=== PATIENT | female | born 1990 | race Caucasian/White ===

== ENCOUNTER 2019-12-28 20:31 | Inpatient (IN) ==
[2019-12-28 20:53] LABS: Mucus,Urine Many /LPF (Occasional); RBC,Urine 4 /HPF (0-4); WBC,Urine 2 /HPF (0-6)
[2019-12-28 20:56] LABS: Urine Appearance Clear (Clear); Urine Color Yellow (Yellow)
[2019-12-28 20:57] LABS: Glucose,Urine (UA) Negative (Negative); Ketones,Urine 25 mg/dL (Negative); Nitrite,Urine Negative (Negative); Protein,Urine >=500 MG/DL
[2019-12-28 20:58] LABS: Bilirubin,Urine Small mg/dL (Negative); Blood, Urine Trace mg/dL (Negative)
[2019-12-28 22:09] LABS: Basophils % 0.1 % (0.0-0.8); Eosinophils % 0.3 % (0.00-10.9); Hemoglobin 10.6 GM/DL (12.0-16.0); Immature Granulocytes % 1.5 %; Immature Granulocytes Absolute 0.16 #; Lymphocytes % 18.8 % (21.3-54.2); Mean Corpuscular HGB Conc 33.1 GM/DL (32-36); Monocytes % 7.5 % (1.7-12.7); NRBC # 0.02 10*3/uL; Neutrophils % 71.8 % (38.7-73.9); Platelet Count 163 T/CUMM (130-400); Red Blood Count 3.68 MC/CUMM (3.8-5.5); Red Cell Distribution Width 13.7 % (9.3-17.3); White Blood Count 10.6 T/CUMM (4-12)
[2019-12-28 22:20] LABS: INR 0.9; PT Patient Result 9.8 SECS (9.8-11.9); Partial Thromboplastin Time 23.1 SECS (23.9-33.8)
[2019-12-28 22:33] LABS: Alanine Aminotransferase 24 U/L (13-56); Albumin 2.3 G/DL (3.4-5.0); Alkaline Phosphatase 121 U/L (45-117); Aspartate Amino Transferase 26 U/L (0-37); Bilirubin,Total < 0.39 MG/DL (0.2-1.0); Blood Urea Nitrogen 12 MG/DL (7-18); Calcium 8.1 MG/DL (8.5-10.1); Estimated Glom Filtration Rate 98 ML/MIN; Glucose 88 MG/DL (74-106); Osmolality,Calculated 275.5 MOS/KG (273-304); Total Protein 6.1 G/DL (6.4-8.3)
[2019-12-28] MEDS ORDERED: ACETAMINOPHEN 500 MG TABLET PO PRN (23:55)
[2019-12-29] MEDS ORDERED: LABETALOL 200 MG TABLET PO SCH (02:00)
[2019-12-29] MEDS ORDERED: MAGNESIUM SULF RIDER 100 ML IV ONE (05:36)
[2019-12-29] MEDS ORDERED: ONDANSETRON 4 MG/2 ML VIAL IV PRN ×3 (05:59→11:19)
[2019-12-29] MEDS ORDERED: MAGNESIUM SULF DRIP 40 GM/1,000 ML ML IV SCH (06:00)
[2019-12-29] MEDS ORDERED: BUTORPHANOL 2 MG/ML VIAL IV PRN (06:09)
[2019-12-29] MEDS ORDERED: MEPERIDINE 50 MG/1 ML VIAL IV PRN (06:09)
[2019-12-29] MEDS ORDERED: LACTATED RINGERS 1,000 ML IV SCH (06:30)
[2019-12-29] MEDS ORDERED: CITRIC ACID/SODIUM CITRATE 30 ML UDCUP PO ONE (06:56)
[2019-12-29] MEDS ORDERED: CLINDAMYCIN INJ 900 MG in PREMIX 1 EACH IV ONE (06:59)
[2019-12-29] MEDS ORDERED: FAMOTIDINE 20 MG/2 ML VIAL IV ONE (07:35)
[2019-12-29] MEDS ORDERED: miSOPROStoL 200 MCG TABLET ONE (08:05)
[2019-12-29] MEDS ORDERED: TRANEXAMIC ACID 1,000 MG/10 ML VIAL ONE (08:05)
[2019-12-29] MEDS ORDERED: OXYTOCIN/LR 20 UNIT/1,000 ML BAG IV ONE ×2 (08:05→11:00)
[2019-12-29] MEDS ORDERED: CARBOPROST TROMETHAMINE 250 MCG/ML AMP IM ONE (08:06)
[2019-12-29] MEDS ORDERED: METHYLERGONOVINE 0.2 MG/1 ML AMP ONE (08:06)
[2019-12-29 09:54] LABS: Cord Arterial Blood HCO3 21.6 MMOL/L
[2019-12-29 09:56] LABS: Cord Venous Blood HCO3 21.9 MMOL/L; Cord Venous Blood PCO2 45.6 MMHG; Cord Venous Blood PO2 18.3
[2019-12-29] MEDS ORDERED: MORPHINE 10 MG/10 ML VIAL ONE (10:25)
[2019-12-29] MEDS ORDERED: fentaNYL 100 MCG/2 ML VIAL ONE (10:26)
[2019-12-29] MEDS ORDERED: propofoL 200 MG/20 ML VIAL IV ONE (10:26)
[2019-12-29] MEDS ORDERED: DEXAMETHASONE 4 MG/1 ML VIAL ONE (10:27)
[2019-12-29] MEDS ORDERED: ONDANSETRON 4 MG/2 ML VIAL ONE (10:27)
[2019-12-29] MEDS ORDERED: BISACODYL 10 MG SUPP RECTAL PRN (11:00)
[2019-12-29] MEDS ORDERED: WITCH HAZEL PADS 100/JAR TOP PRN (11:00)
[2019-12-29] MEDS ORDERED: RHO(D) IMMUNE GLOBULIN 300 MCG SYRINGE IM ONE (11:00)
[2019-12-29] MEDS ORDERED: oxyCODONE/ACETAMINOPHEN 5-325 MG TABLET PO PRN (11:00)
[2019-12-29] MEDS ORDERED: ACETAMINOPHEN 325 MG TABLET PO PRN (11:00)
[2019-12-29] MEDS ORDERED: BENZOCAINE 20%/MENTHOL 0.5% SPRAY 56 GM CAN TOP PRN (11:00)
[2019-12-29] MEDS ORDERED: HYDROCORTISONE 2.5% RECTAL CREAM 30 GM TUBE TOP PRN (11:00)
[2019-12-29] MEDS ORDERED: MEASLES/MUMPS/RUBELLA VACCINE 0.5 ML VIAL SUBCUT ONE (11:00)
[2019-12-29] MEDS ORDERED: DIPH/TET/ACEL PERT BOOSTER VACCINE 0.5 ML VIAL IM ONE (11:00)
[2019-12-29] MEDS ORDERED: LANOLIN 50% CREAM 0.3 OZ TUBE TOP PRN (11:00)
[2019-12-29] MEDS ORDERED: IBUPROFEN 800 MG TABLET PO PRN (11:00)
[2019-12-29] MEDS ORDERED: hydrOXYzine HCL 25 MG/1 ML VIAL IM PRN (11:19)
[2019-12-29] MEDS ORDERED: diphenhydrAMINE 50 MG/1 ML VIAL IV PRN (11:19)
[2019-12-29] MEDS ORDERED: HYDROmorphone 2 MG/1 ML VIAL IV PRN (11:19)
[2019-12-29] MEDS: LABETALOL 200 MG TABLET PO SCH ×2 (11:34→18:22)
[2019-12-29] MEDS: CLINDAMYCIN INJ 900 MG in PREMIX 1 EACH IV SCH (17:45)
[2019-12-30 01:35] LABS: Basophils % 0.1 % (0.0-0.8); Eosinophils % 0.1 % (0.00-10.9); Hemoglobin 9.3 GM/DL (12.0-16.0); Immature Granulocytes % 0.4 %; Immature Granulocytes Absolute 0.07 #; Lymphocytes # 1.8 10*3/uL (1.4-4.0); Mean Corpuscular HGB Conc 33.2 GM/DL (32-36); Mean Corpuscular Volume 85.6 FL (87-102); Mean Platelet Volume 11.7 FL (9.6-12.0); Monocytes % 5.6 % (1.7-12.7); Neutrophils % 82.8 % (38.7-73.9); Platelet Count 167 T/CUMM (130-400); Red Blood Count 3.27 MC/CUMM (3.8-5.5); Red Cell Distribution Width 13.4 % (9.3-17.3); White Blood Count 16.7 T/CUMM (4-12)
[2019-12-30] MEDS: CLINDAMYCIN INJ 900 MG in PREMIX 1 EACH IV SCH (03:46)
[2019-12-30] MEDS: LABETALOL 200 MG TABLET PO SCH ×4 (04:29→21:43)
[2019-12-30] MEDS: DOCUSATE SODIUM 100 MG CAPSULE PO SCH ×2 (08:39→21:12)
[2019-12-30] MEDS: MAGNESIUM HYDROXIDE SUSP 30 ML UDCUP PO PRN ×2 (08:45→21:12)
[2019-12-30] MEDS: oxyCODONE/ACETAMINOPHEN 5-325 MG TABLET PO PRN (20:42)
[2019-12-31] MEDS: LABETALOL 200 MG TABLET PO SCH ×3 (06:09→23:08)
[2019-12-31] MEDS: oxyCODONE/ACETAMINOPHEN 5-325 MG TABLET PO PRN (06:09)
[2019-12-31] MEDS: DOCUSATE SODIUM 100 MG CAPSULE PO SCH ×2 (09:00→22:02)
[2019-12-31] MEDS: IBUPROFEN 400 MG TABLET PO PRN ×2 (11:15→22:02)
[2019-12-31] MEDS: MAGNESIUM HYDROXIDE SUSP 30 ML UDCUP PO PRN (22:02)
[2020-01-01] MEDS: IBUPROFEN 400 MG TABLET PO PRN ×2 (04:41→14:58)
[2020-01-01] MEDS: LABETALOL 200 MG TABLET PO SCH ×2 (06:52→14:47)
[2020-01-01] MEDS: oxyCODONE/ACETAMINOPHEN 5-325 MG TABLET PO PRN (06:52)
[2020-01-01] MEDS: LABETALOL 100 MG TABLET PO SCH ×2 (09:01→09:34)
[2020-01-01] MEDS: DOCUSATE SODIUM 100 MG CAPSULE PO SCH (09:01)
[2020-01-01 12:05] VITALS: BP 129/79
== END 2020-01-01 17:45 | disposition home or self-care (01) | DRG 788 ==
LOC: N.LDOUT 20:31 → N.LD 20:34 → N.OB 12-29 23:30
PROVIDERS: ADMIT Specialist; ATTEND Specialist
PROC: LDCSECT (ICD-10-PCS; 2019-12-29 08:30)

== ENCOUNTER 2020-01-02 18:58 | Observation (INO) ==
[2020-01-02] MEDS ORDERED: LABETALOL 20 MG/4 ML SYRINGE IV STA ×2 (19:32→20:12)
[2020-01-02 20:02] LABS: Basophils % 0.3 % (0.0-0.8); Eosinophils # 0.1 10*3/uL (0.0-0.87); Eosinophils % 1.1 % (0.00-10.9); Hematocrit 30.5 VOL% (35.7-47.0); Hemoglobin 9.7 GM/DL (12.0-16.0); Immature Granulocytes % 0.5 %; Immature Granulocytes Absolute 0.04 #; Lymphocytes # 1.8 10*3/uL (1.4-4.0); Lymphocytes % 23.4 % (21.3-54.2); Mean Corpuscular HGB Conc 31.8 GM/DL (32-36); Mean Corpuscular Volume 88.7 FL (87-102); Mean Platelet Volume 10.1 FL (9.6-12.0); Monocytes % 6.3 % (1.7-12.7); Neutrophils % 68.4 % (38.7-73.9); Platelet Count 263 T/CUMM (130-400); Red Blood Count 3.44 MC/CUMM (3.8-5.5); White Blood Count 7.6 T/CUMM (4-12)
[2020-01-02 20:16] LABS: PT Patient Result 10.3 SECS (9.8-11.9)
[2020-01-02 20:23] LABS: Alanine Aminotransferase 40 U/L (13-56); Albumin 2.4 G/DL (3.4-5.0); Alkaline Phosphatase 97 U/L (45-117); Aspartate Amino Transferase 30 U/L (0-37); Bilirubin,Total < 0.39 MG/DL (0.2-1.0); Blood Urea Nitrogen 8 MG/DL (7-18); Calcium 8.7 MG/DL (8.5-10.1); Estimated Glom Filtration Rate 107 ML/MIN; Glucose 89 MG/DL (74-106); Osmolality,Calculated 277.3 MOS/KG (273-304); Total Protein 6.2 G/DL (6.4-8.3); Troponin I < 0.015 NG/ML (0.00-0.045)
[2020-01-02 20:57] LABS: Bacteria,Urine Moderate /HPF (Few); Bilirubin,Urine Negative (Negative); Blood, Urine Moderate mg/dL (Negative); Glucose,Urine (UA) Negative (Negative); Ketones,Urine Negative (Negative); Mucus,Urine Occasional /LPF (Occasional); Nitrite,Urine Negative (Negative); Protein,Urine 30 MG/DL; RBC,Urine 16 /HPF (0-4); Squamous Epithelial Cell,Urine Occasional /HPF (0-10); Urine Appearance CLEAR (Clear); Urine Color Yellow (Yellow); Urine Specific Gravity 1.011 (1.001-1.035); Urine Urobilinogen < 2.0 EU/DL (0.2-1.0); WBC,Urine 5 /HPF (0-6)
[2020-01-02] MEDS ORDERED: MAGNESIUM SULF RIDER 100 ML IV ONE (20:57)
[2020-01-02] MEDS ORDERED: MAGNESIUM SULFATE 1 GM/2 ML VIAL IV ONE (21:03)
[2020-01-02] MEDS ORDERED: ONDANSETRON 4 MG/2 ML VIAL IV PRN (21:10)
[2020-01-02] MEDS ORDERED: amLODIPine 5 MG TABLET PO STA (21:13)
[2020-01-02] MEDS ORDERED: MAGNESIUM SULF DRIP 40 GM/1,000 ML ML IV SCH (21:30)
[2020-01-02] MEDS ORDERED: LABETALOL 200 MG TABLET PO SCH (23:30)
[2020-01-02] MEDS ORDERED: LACTATED RINGERS 1,000 ML IV SCH (23:30)
[2020-01-03] MEDS: ACETAMINOPHEN 500 MG TABLET PO PRN ×3 (01:54→22:16)
[2020-01-03 04:48] LABS: Basophils % 0.6 % (0.0-0.8); Eosinophils # 0.1 10*3/uL (0.0-0.87); Eosinophils % 1.4 % (0.00-10.9); Hematocrit 30.9 VOL% (35.7-47.0); Hemoglobin 9.9 GM/DL (12.0-16.0); Immature Granulocytes % 0.6 %; Immature Granulocytes Absolute 0.04 #; Lymphocytes # 2.1 10*3/uL (1.4-4.0); Mean Platelet Volume 9.8 FL (9.6-12.0); Monocytes % 7.9 % (1.7-12.7); Neutrophils % 60.5 % (38.7-73.9); Platelet Count 258 T/CUMM (130-400); Red Blood Count 3.51 MC/CUMM (3.8-5.5); White Blood Count 7.2 T/CUMM (4-12)
[2020-01-03 05:15] LABS: Albumin 2.4 G/DL (3.4-5.0); Calcium 8.1 MG/DL (8.5-10.1); Osmolality,Calculated 273.5 MOS/KG (273-304); Total Protein 6.3 G/DL (6.4-8.3)
[2020-01-03] MEDS: IBUPROFEN 800 MG TABLET PO PRN ×2 (06:43→16:02)
[2020-01-03] MEDS: LABETALOL 200 MG TABLET PO SCH ×2 (07:46→15:57)
[2020-01-03] MEDS ORDERED: LACTATED RINGERS 1,000 ML IV SCH (10:31)
[2020-01-03] MEDS: FAMOTIDINE 20 MG TABLET PO SCH ×2 (10:59→21:03)
[2020-01-04] MEDS: LABETALOL 200 MG TABLET PO SCH ×3 (00:01→15:55)
[2020-01-04] MEDS: IBUPROFEN 800 MG TABLET PO PRN (01:49)
[2020-01-04 13:55] VITALS: BP 121/76
== END 2020-01-04 16:05 | disposition home or self-care (01) ==
LOC: N.EDINP 18:58 → N.ED 18:58 → N.EDINP 22:25 → N.LD 23:11
PROVIDERS: ADMIT Obstetrics & Gynecology; ATTEND Obstetrics & Gynecology